=== PATIENT | female | born 1990 | race Caucasian/White ===

== ENCOUNTER 2019-01-26 23:16 | Emergency (ER) | payer OTHER ==
[2019-01-27] MEDS ORDERED: SODIUM CHLORIDE 0.9% 1,000 ML IV STA (00:25)
[2019-01-27] MEDS ORDERED: METOCLOPRAMIDE 5 MG/ML 2 ML VIAL IVP STA (00:25)
[2019-01-27 01:00] VITALS: PULSE 69
[2019-01-27 01:04] LABS: Basophils # (A) 0.1 k/uL (0-0.2); Basophils % (A) 1 %; Eosinophils # (A) 0.1 k/uL (0-0.7); Eosinophils % (A) 1 %; HCT 43.2 % (34.0-46.0); HGB 14.1 gm/dL (11.4-16.0); Lymphocytes % (A) 11 %; MCH 29.4 pg (25.0-35.0); MCHC 32.7 g/dL (31.0-37.0); MCV 89.8 fL (80.0-100.0); Mean Platelet Volume 7.4; Monocytes # (A) 0.3 k/uL (0-1.0); Monocytes % (A) 4 %; Neutrophils # (A) 7.1 k/uL (1.3-7.7); Neutrophils % (A) 83 %; Platelet Count 282 k/uL (150-450); RBC 4.81 m/uL (3.80-5.40); RDW 14.1 % (11.5-15.5); WBC 8.5 k/uL (3.8-10.6)
[2019-01-27 01:07] LABS: Appearance,Urine Cloudy (Clear); Bilirubin,Urine Negative (Negative); Blood,Urine Negative (Negative); Color,Urine Yellow; Glucose,Urine (UA) Negative (Negative); Ketones,Urine 3+ (Negative); Leukocyte Esterase,Urine Moderate (Negative); Mucus,Urine Many /hpf; Nitrite,Urine Negative (Negative); Protein,Urine 1+ (Negative); RBC,Urine 2 /hpf (0-5); Specific Gravity,Urine 1.032 (1.001-1.035); Squamous Epithelial Cell,Urine 28 /hpf (0-4)
[2019-01-27 01:13] LABS: ALT 27 U/L (9-52); AST 22 U/L (14-36); African American GFR (CKD) >90 (>60 ml/min/1.73 sqM); Alkaline Phosphatase 68 U/L (38-126); Amylase 88 U/L (30-110); Anion Gap 12 mmol/L; Blood Urea Nitrogen 13 mg/dL (7-17); Calcium 9.9 mg/dL (8.4-10.2); Carbon Dioxide 24 mmol/L (22-30); Chloride 105 mmol/L (98-107); Glucose 94 mg/dL (74-99); Non-African American GFR(CKD) >90 (>60 ml/min/1.73 sqM); Potassium 3.6 mmol/L (3.5-5.1); Sodium 141 mmol/L (137-145); Total Bilirubin 0.5 mg/dL (0.2-1.3); Total Protein 8.1 g/dL (6.3-8.2)
--- NOTE | 2019-01-27 01:46 | ED ---
Nausea/Vomiting/Diarrhea HPI - General Chief complaint: Nausea/Vomiting/Diarrhea Stated complaint: Vomiting Time Seen by Provider: 01/26/19 23:34 Source: patient Mode of arrival: ambulatory Limitations: no limitations - History of Present Illness Initial comments: This patient is 28-year-old woman who presents to be evaluated for nausea vomiting and abdominal pain. The patient states that for going back as long as she can remember she has always had a sensitive stomach. She states that she tends to get periods in which she has multiple episodes of vomiting and not being able tolerate oral intake. She has noted that this tends to happen after she drinks any alcohol, and states that she did have a couple of alcoholic beverages on Friday when there was a festival. The patient states that over the next few days she has not been able to tolerate much oral intake. She states that when she tries to eat or drink anything she'll have some vomiting after that. She also has had a little bit of epigastric cramping/burning pain that is intermittent and mild to moderate severity. She states that this is something she has also had an the past, having these episodes. The patient states she has had between 10-20 episodes of vomiting/dry heaving today, generally after she has anything to eat or drink. She states that she may have seen this to trace of blood but there is no real coffee ground emesis or bloody vomitus. Patient states that she presents for evaluation because she believes she started to get dehydrated now. complaint: nausea, vomiting Onset/Timin -: days(s) Description of Vomiting: food contents Associated Abdominal Pain: Yes Location: epigastric Radiation: none Severity: mild Quality: cramping Consistency: intermittent Improves with: none Worsens with: eating Associated Symptoms: denies other symptoms - Related Data Home Medications Medication Instructions Recorded Confirmed Ascorbic Acid [Vitamin C] 500 mg PO DAILY 02/27/16 02/27/16 Baclofen [Lioresal] 10 mg PO BID 02/27/16 02/27/16 Cyanocobalamin [Vitamin B-12] 500 mcg PO DAILY 02/27/16 02/27/16 DULoxetine HCL [Cymbalta] 20 mg PO HS 02/27/16 02/27/16 Gabapentin [Neurontin] 100 mg PO HS 02/27/16 02/27/16 Gabapentin [Neurontin] 300 mg PO HS 02/27/16 02/27/16 Hair Skin And Nails 1 tab PO DAILY 02/27/16 02/27/16 lamoTRIgine [LaMICtal] 25 mg PO DAILY 02/27/16 02/27/16 lamoTRIgine [LaMICtal] 100 mg PO HS 02/27/16 02/27/16 Previous Rx's Medication Instructions Recorded Naproxen [Naprosyn] 500 mg PO Q12HR PRN #20 tab 02/27/16 Metoclopramide [Reglan] 10 mg PO Q6HR PRN #10 tab 01/27/19 Allergies Allergy/AdvReac Type Severity Reaction Status Date / Time No Known Allergies Allergy Verified 01/26/19 23:32 Review of Systems ROS Statement: Those systems with pertinent positive or pertinent negative responses have been documented in the HPI. ROS Other: All systems not noted in ROS Statement are negative. Constitutional: Denies: fever, chills, weakness Respiratory: Denies: cough Cardiovascular: Denies: chest pain, palpitations, syncope Gastrointestinal: Reports: abdominal pain, nausea, vomiting. Denies: hematemesis, melena, hematochezia Genitourinary: Denies: dysuria, hematuria Musculoskeletal: Denies: back pain Neurological: Denies: headache, weakness Past Medical History Additional Past Medical History / Comment(s): skin infection History of Any Multi-Drug Resistant Organisms: None Reported Past Surgical History: Tubal Ligation Past Psychological History: Anxiety, Depression Smoking Status: Current every day smoker Past Alcohol Use History: Rare Past Drug Use History: Marijuana General Exam Limitations: no limitations General appearance: alert, in no apparent distress Head exam: Present: atraumatic, normocephalic Eye exam: Present: normal appearance. Absent: scleral icterus, conjunctival injection ENT exam: Present: mucous membranes dry Respiratory exam: Present: normal lung sounds bilaterally. Absent: respiratory distress, wheezes, rales, rhonchi, stridor Cardiovascular Exam: Present: regular rate, normal rhythm, normal heart sounds. Absent: systolic murmur, diastolic murmur, rubs, gallop GI/Abdominal exam: Present: soft, hypoactive bowel sounds. Absent: distended, tenderness, guarding, rebound, rigid, pulsatile mass, hernia Extremities exam: Present: normal inspection, normal capillary refill. Absent: pedal edema, calf tenderness Back exam: Present: normal inspection. Absent: CVA tenderness (R), CVA tenderness (L) Skin exam: Present: warm, dry, intact, normal color. Absent: rash Course Vital Signs 01/26/19 01/27/19 01/27/19 23:28 00:59 02:04 Temperature 98.2 F 98.4 F Pulse Rate 78 69 69 Respiratory 16 18 19 Rate Blood Pressure 135/86 123/75 116/70 O2 Sat by Pulse 97 95 100 Oximetry Medical Decision Making - Medical Decision Making Patient is feeling much better following fluids and Reglan. She states she is feeling somewhat better that she wants to go home. She did tolerate some oral fluids. Discussed following up with PMD/gastroenterology to see about further treatment for what sounds like recurring intermittent episodes of vomiting. Also discussed return parameters. - Lab Data Result diagrams: 01/27/19 00:40 01/27/19 00:40 Lab Results 01/27/19 01/27/19 01/27/19 Range/Units 00:40 00:40 00:40 WBC 8.5 (3.8-10.6) k/uL RBC 4.81 (3.80-5.40) m/uL Hgb 14.1 (11.4-16.0) gm/dL Hct 43.2 (34.0-46.0) % MCV 89.8 (80.0-100.0) fL MCH 29.4 (25.0-35.0) pg MCHC 32.7 (31.0-37.0) g/dL RDW 14.1 (11.5-15.5) % Plt Count 282 (150-450) k/uL Neutrophils % 83 % Lymphocytes % 11 % Monocytes % 4 % Eosinophils % 1 % Basophils % 1 % Neutrophils # 7.1 (1.3-7.7) k/uL Lymphocytes # 1.0 (1.0-4.8) k/uL Monocytes # 0.3 (0-1.0) k/uL Eosinophils # 0.1 (0-0.7) k/uL Basophils # 0.1 (0-0.2) k/uL Sodium 141 (137-145) mmol/L Potassium 3.6 (3.5-5.1) mmol/L Chloride 105 (98-107) mmol/L Carbon Dioxide 24 (22-30) mmol/L Anion Gap 12 mmol/L BUN 13 (7-17) mg/dL Creatinine 0.62 (0.52-1.04) mg/dL Est GFR (CKD-EPI)AfAm >90 (>60 ml/min/1.73 sqM) Est GFR (CKD-EPI)NonAf >90 (>60 ml/min/1.73 sqM) Glucose 94 (74-99) mg/dL Calcium 9.9 (8.4-10.2) mg/dL Total Bilirubin 0.5 (0.2-1.3) mg/dL AST 22 (14-36) U/L ALT 27 (9-52) U/L Alkaline Phosphatase 68 (38-126) U/L Total Protein 8.1 (6.3-8.2) g/dL Albumin 5.0 (3.5-5.0) g/dL Amylase 88 (30-110) U/L Lipase 70 (23-300) U/L Urine Color Urine Appearance (Clear) Urine pH (5.0-8.0) Ur Specific [place] (1.001-1.035) Urine Protein (Negative) Urine Glucose (UA) (Negative) Urine Ketones (Negative) Urine Blood (Negative) Urine Nitrite (Negative) Urine Bilirubin (Negative) Urine Urobilinogen (<2.0) mg/dL Ur Leukocyte Esterase (Negative) Urine RBC (0-5) /hpf Ur Squamous Epith Cells (0-4) /hpf Urine Mucus (None) /hpf Urine HCG, Qual Not Detected (Not Detectd) 01/27/19 Range/Units 00:40 WBC (3.8-10.6) k/uL RBC (3.80-5.40) m/uL Hgb (11.4-16.0) gm/dL Hct (34.0-46.0) % MCV (80.0-100.0) fL MCH (25.0-35.0) pg MCHC (31.0-37.0) g/dL RDW (11.5-15.5) % Plt Count (150-450) k/uL Neutrophils % % Lymphocytes % % Monocytes % % Eosinophils % % Basophils % % Neutrophils # (1.3-7.7) k/uL Lymphocytes # (1.0-4.8) k/uL Monocytes # (0-1.0) k/uL Eosinophils # (0-0.7) k/uL Basophils # (0-0.2) k/uL Sodium (137-145) mmol/L Potassium (3.5-5.1) mmol/L Chloride (98-107) mmol/L Carbon Dioxide (22-30) mmol/L Anion Gap mmol/L BUN (7-17) mg/dL Creatinine (0.52-1.04) mg/dL Est GFR (CKD-EPI)AfAm (>60 ml/min/1.73 sqM) Est GFR (CKD-EPI)NonAf (>60 ml/min/1.73 sqM) Glucose (74-99) mg/dL Calcium (8.4-10.2) mg/dL Total Bilirubin (0.2-1.3) mg/dL AST (14-36) U/L ALT (9-52) U/L Alkaline Phosphatase (38-126) U/L Total Protein (6.3-8.2) g/dL Albumin (3.5-5.0) g/dL Amylase (30-110) U/L Lipase (23-300) U/L Urine Color Yellow Urine Appearance Cloudy H (Clear) Urine pH 6.0 (5.0-8.0) Ur Specific [place] 1.032 (1.001-1.035) Urine Protein 1+ H (Negative) Urine Glucose (UA) Negative (Negative) Urine Ketones 3+ H (Negative) Urine Blood Negative (Negative) Urine Nitrite Negative (Negative) Urine Bilirubin Negative (Negative) Urine Urobilinogen 2.0 (<2.0) mg/dL Ur Leukocyte Esterase Moderate H (Negative) Urine RBC 2 (0-5) /hpf Ur Squamous Epith Cells 28 H (0-4) /hpf Urine Mucus Many H (None) /hpf Urine HCG, Qual (Not Detectd) Disposition Clinical Impression: Vomiting Disposition: HOME SELF-CARE Condition: Good Instructions (If sedation given, give patient instructions): Acute Nausea and Vomiting (ED) Prescriptions: Metoclopramide [Reglan] 10 mg PO Q6HR PRN #10 tab PRN Reason: Vomiting Is patient prescribed a controlled substance at d/c from ED?: No Referrals: Penelope Villalobos DO [Primary Care Provider] - 1-2 days
[2019-01-27 02:07] VITALS: BP 116/70; RESP 19; TEMP 98.4
== END 2019-01-27 02:06 | disposition home or self-care (01) ==
LOC: EC 23:16 → SUPCPDRO 23:16 → EC 01-27 02:06
DX: R11.2 Nausea with vomiting, unspecified (principal); R19.15 Other abnormal bowel sounds; R10.13 Epigastric pain; F32.9 Major depressive disorder, single episode, unspecified; F41.9 Anxiety disorder, unspecified; F17.200 Nicotine dependence, unspecified, uncomplicated; Z79.899 Other long term (current) drug therapy; Z87.2 Personal history of diseases of the skin and subcutaneous tissue
CPT/HCPCS: 36415; 80053; 81001; 81025; 82150; 83690; 85025; 96361; 96374; 99284

== ENCOUNTER 2024-07-21 07:35 | Emergency (ER) | payer OTHER ==
--- NOTE | 2024-07-21 08:12 | ED ---
URI HPI - General Chief Complaint: Upper Respiratory Infection Stated Complaint: Chest pain,Cough Time Seen by Provider: 07/21/24 07:39 Source: patient, RN notes reviewed Mode of arrival: ambulatory Limitations: no limitations - History of Present Illness Initial Comments: Patient is a 34 year old female presenting with cough and congestion x 2 weeks. She states that she has had cough, shortness of breath, congestion, sore throat, vomiting, diarrhea, chills and rib pain for the past 2 weeks. She rates her rib pain a 6-7/10. She notes that the symptoms were present for 1 week, stopped for 3 days, and symptoms came back worse. She notes that the rib pain is on her sides and is worse with coughing, deep breath and vomiting, and is better with putting pressure on her sides. She states the vomiting is typically after she coughs. She states that she has been coughing up "green and yellow". She states taking Nyquil, tylenol and ibuprofen, with no improvement in symptoms. She states that her and child were sick, and she thinks she "has a combination of what they had". She denies any hematemesis, hematochezia/melena, or chest pain. - Related Data Home Medications Medication Instructions Recorded Confirmed Ascorbic Acid [Vitamin C] 500 mg PO DAILY 02/27/16 02/27/16 Baclofen [Lioresal] 10 mg PO BID 02/27/16 02/27/16 Cyanocobalamin [Vitamin B-12] 500 mcg PO DAILY 02/27/16 02/27/16 DULoxetine HCL [Cymbalta] 20 mg PO HS 02/27/16 02/27/16 Gabapentin [Neurontin] 100 mg PO HS 02/27/16 02/27/16 Gabapentin [Neurontin] 300 mg PO HS 02/27/16 02/27/16 Hair Skin And Nails 1 tab PO DAILY 02/27/16 02/27/16 lamoTRIgine [LaMICtal] 25 mg PO DAILY 02/27/16 02/27/16 lamoTRIgine [LaMICtal] 100 mg PO HS 02/27/16 02/27/16 Previous Rx's Medication Instructions Recorded Naproxen [Naprosyn] 500 mg PO Q12HR PRN #20 tab 02/27/16 Metoclopramide [Reglan] 10 mg PO Q6HR PRN #10 tab 01/27/19 Ibuprofen [Motrin] 600 mg PO Q8HR PRN #20 tab 07/21/24 Allergies Allergy/AdvReac Type Severity Reaction Status Date / Time No Known Allergies Allergy Verified 01/26/19 23:32 Review of Systems ROS Statement: Those systems with pertinent positive or pertinent negative responses have been documented in the HPI. ROS Other: All systems not noted in ROS Statement are negative. Past Medical History Past Medical History: Asthma Additional Past Medical History / Comment(s): skin infection chronic back pain. endometrosis History of Any Multi-Drug Resistant Organisms: None Reported Past Surgical History: Tubal Ligation, Uterine Ablation Past Psychological History: Anxiety, Depression Past Alcohol Use History: Rare Past Drug Use History: Marijuana General Exam Limitations: no limitations General appearance: alert, in no apparent distress Head exam: Present: atraumatic, normocephalic, normal inspection Neck exam: Present: normal inspection. Absent: tenderness, meningismus, lymphadenopathy Respiratory exam: Present: rales (bilateral) Cardiovascular Exam: Present: regular rate, normal rhythm, normal heart sounds. Absent: systolic murmur, diastolic murmur, rubs, gallop, clicks GI/Abdominal exam: Present: soft, normal bowel sounds. Absent: distended, tenderness, guarding, rebound, rigid Neurological exam: Present: alert, oriented X3, CN II-XII intact Skin exam: Present: warm, dry, intact, normal color. Absent: rash Course Vital Signs 07/21/24 07/21/24 07:42 09:21 Temperature 98.3 F 98.1 F Pulse Rate 96 78 Respiratory 20 18 Rate Blood Pressure 152/100 145/89 O2 Sat by Pulse 98 97 Oximetry Medical Decision Making - Medical Decision Making Was pt. sent in by a medical professional or institution (, PA, MANAGER ELECTRONIC, urgent care, hospital, or [facility]...) When possible be specific @ -No Did you speak to anyone other than the patient for history (EMS, parent, family, police, friend...)? What history was obtained from this source @ -No Did you review nursing and triage notes (agree or disagree)? Why? @ -I reviewed and agree with nursing and triage notes Were old charts reviewed (outside hosp., previous admission, EMS record, old EKG, old radiological studies, urgent care reports/EKG's, [facility] records)? Report findings @ -No old charts were reviewed Differential Diagnosis (chest pain, altered mental status, abdominal pain women, abdominal pain men, vaginal bleeding, weakness, fever, dyspnea, syncope, headache, dizziness, GI bleed, back pain, seizure, CVA, palpatations, mental health, musculoskeletal)? @ -COVID 19, RSV, influenza, pneumonia, acute bronchitis, URI, this list is not all inclusive EKG interpreted by me (3pts min.). @ -None X-rays interpreted by me (1pt min.). @ -None done CT interpreted by me (1pt min.). @ -None done U/S interpreted by me (1pt. min.). @ -None done What testing was considered but not performed or refused? (CT, X-rays, U/S, labs)? Why? @ -None What meds were considered but not given or refused? Why? @ -None Did you discuss the management of the patient with other professionals (professionals i.e. , PA, MANAGER [employer], lab, RT, psych nurse, social work professor, solar applications development engineer, teacher, security control room officer, outsole caser)? Give summary @ -No Was smoking cessation discussed for >3mins.? @ -No Was critical care preformed (if so, how long)? @ -No Were there social determinants of health that impacted care today? How? (Homelessness, low income, unemployed, alcoholism, drug addiction, transportation, low edu. Level, literacy, decrease access to med. care, long-term, rehab)? @ -No Was there de-escalation of care discussed even if they declined (Discuss DNR or withdrawal of care, Hospice)? DNR status @ -No What co-morbidities impacted this encounter? (DM, HTN, Smoking, COPD, CAD, Cancer, CVA, ARF, Chemo, Hep., AIDS, mental health diagnosis, sleep apnea, morbid obesity)? @ -None Was patient admitted / discharged? Hospital course, mention meds given and route, prescriptions, significant lab abnormalities, going to OR and other pertinent info. @ -[Patient is influenza A positive patient discharged in stable condition with supportive treatment return parens discussed. Undiagnosed new problem with uncertain prognosis? @ -No Drug Therapy requiring intensive monitoring for toxicity (Heparin, Nitro, Insulin, Cardizem)? @ -No Were any procedures done? @ -No Diagnosis/symptom? @ -Influenza A Acute, or Chronic, or Acute on Chronic? @ -Acute Uncomplicated (without systemic symptoms) or Complicated (systemic symptoms)? @ -Uncomplicated Side effects of treatment? @ -No Exacerbation, Progression, or Severe Exacerbation? @ -No Poses a threat to life or bodily function? How? (Chest pain, [place], [place], pneumonia, PE, COPD, DKA, ARF, appy, cholecystitis, CVA, Diverticulitis, Homicidal, Suicidal, threat to staff... and all critical care pts) @ -No - Lab Data Lab Results 07/21/24 Range/Units 08:14 Influenza Type A (PCR) Detected A (Not Detectd) Influenza Type B (PCR) Not Detected (Not Detectd) RSV (PCR) Not Detected (Not Detectd) SARS-CoV-2 (PCR) Not Detected (Not Detectd) Disposition Clinical Impression: Influenza Disposition: HOME SELF-CARE Condition: Stable Instructions (If sedation given, give patient instructions): Influenza (ED) Additional Instructions: Please return to the Emergency Department if symptoms worsen or any other concerns. Prescriptions: Ibuprofen [Motrin] 600 mg PO Q8HR PRN #20 tab PRN Reason: Pain Is patient prescribed a controlled substance at d/c from ED?: No Referrals: None,Stated [Primary Care Provider] - 1-2 days Time of Disposition: 09:03
--- NOTE | 2024-07-21 08:41 | XR ---
EXAMINATION TYPE: XR chest 2V DATE OF EXAM: 07/21/2024 8:36 AM COMPARISON: None CLINICAL INDICATION: Female, 34 years old with history of cough; TECHNIQUE: XR chest 2V Frontal and lateral views of the chest. FINDINGS: Lungs/Pleura: There is no evidence of pleural effusion, focal consolidation, or pneumothorax. Pulmonary vascularity: Unremarkable. Heart/mediastinum: Cardiomediastinal silhouette is unremarkable. Musculoskeletal: No acute osseous pathology. Other findings: None IMPRESSION: No acute cardiopulmonary disease/process. [facility], , 07/21/2024 8:39 AM
[2024-07-21 08:58] LABS: Influenza A Detected (Not Detectd); Influenza B Not Detected (Not Detectd); RSV Not Detected (Not Detectd)
[2024-07-21] MEDS: KETOROLAC 15 MG/ML 1 ML VIAL IM STA (09:15)
[2024-07-21 09:22] VITALS: BP 145/89; PULSE 78; RESP 18; TEMP 98.1
== END 2024-07-21 09:22 | disposition home or self-care (01) ==
LOC: EC 07:35
DX: J10.1 Influenza due to other identified influenza virus with other respiratory manifestations (principal)
CPT/HCPCS: 87636; 71046; 99285; 96372; J1885

== ENCOUNTER 2024-07-27 12:18 | Inpatient (IN) | payer OTHER ==
[2024-07-27] MEDS: SODIUM CHLORIDE 0.9% 2,000 ML IV STA (13:27)
[2024-07-27] MEDS: KETOROLAC 15 MG/ML 1 ML VIAL IVP STA (13:27)
[2024-07-27] MEDS: PANTOPRAZOLE 40 MG/10 ML VIAL IVP STA (13:27)
[2024-07-27] MEDS: ONDANSETRON 4 MG/2 ML VIAL IVP STA (13:27)
[2024-07-27 13:52] LABS: Basophils % (A) 0 %; Eosinophils # (A) 0.1 k/uL (0-0.7); Eosinophils % (A) 0 %; HCT 43.6 % (34.0-46.0); HGB 14.7 gm/dL (11.4-16.0); Lymphocytes # (A) 0.6 k/uL (1.0-4.8); Lymphocytes % (A) 2 %; MCH 28.8 pg (25.0-35.0); MCHC 33.8 g/dL (31.0-37.0); MCV 85.3 fL (80.0-100.0); Mean Platelet Volume 8.3; Monocytes % (A) 4 %; Neutrophils % (A) 92 %; Platelet Count 251 k/uL (150-450); RBC 5.11 m/uL (3.80-5.40); RDW 12.6 % (11.5-15.5)
[2024-07-27 14:04] LABS: ALT 70 U/L (4-34); AST 35 U/L (14-36); African American GFR (CKD) >90 (>60 ml/min/1.73 sqM); Albumin 4.8 g/dL (3.5-5.0); Alkaline Phosphatase 140 U/L (38-126); Amylase 54 U/L (30-110); Anion Gap 18 mmol/L; Blood Urea Nitrogen 20 mg/dL (7-17); Calcium 9.4 mg/dL (8.4-10.2); Carbon Dioxide 24 mmol/L (22-30); Chloride 93 mmol/L (98-107); Glucose 103 mg/dL (74-99); Lipase 45 U/L (23-300); Non-African American GFR(CKD) 84 (>60 ml/min/1.73 sqM); Potassium 3.5 mmol/L (3.5-5.1); Sodium 135 mmol/L (137-145); Total Bilirubin 1.7 mg/dL (0.2-1.3); Total Protein 8.1 g/dL (6.3-8.2)
[2024-07-27 14:06] LABS: INR 1.5 (<1.2); Partial Thromboplastin Time 27.3 sec (22.0-30.0); Prothrombin Time 15.8 sec (10.0-12.5)
[2024-07-27 14:20] LABS: HCG,Qualitative Serum Not Detected
[2024-07-27 14:28] LABS: Influenza A Not Detected (Not Detectd); Influenza B Not Detected (Not Detectd); RSV Not Detected (Not Detectd)
--- NOTE | 2024-07-27 14:48 | ED ---
General Adult HPI <Clifford Mehta - Last Filed: 07/27/24 17:07> - General Source: patient, RN notes reviewed, old records reviewed Mode of arrival: ambulatory Limitations: no limitations <Chucky Villalobos - Last Filed: 07/28/24 12:59> - General Chief complaint: Recheck/Abnormal Lab/Rx Stated complaint: Vomiting,Back pain Time Seen by Provider: 07/27/24 12:50 - History of Present Illness Initial comments: Patient is a 34-year-old female who presents emergency department complaining of abdominal pain, nausea, vomiting as well as a cough. Has been ongoing for more or less a month. This is triggering trauma chronic back spasms as well. Uncertain what is causing current symptoms. Was diagnosed with the flu a few weeks ago but states she never seem to be feel better. She endorses epigastric abdominal discomfort. She denies chest pain or shortness of breath. Denies urinary complaints. States she is not . Presents for further evaluation at this time. (Chucky Villalobos) - Related Data Previous Rx's Medication Instructions Recorded Ibuprofen [Motrin] 600 mg PO Q8HR PRN #20 tab 07/21/24 Allergies Allergy/AdvReac Type Severity Reaction Status Date / Time No Known Allergies Allergy Verified 07/27/24 17:45 Review of Systems ROS Other: All systems not noted in ROS Statement are negative. <Clifford Mehta - Last Filed: 07/27/24 17:07> ROS Other: All systems not noted in ROS Statement are negative. <Chucky Villalobos - Last Filed: 07/28/24 12:59> ROS Statement: Those systems with pertinent positive or pertinent negative responses have been documented in the HPI. Review of Systems: CONST: Denies fever EYES: Denies blurry vision ENT: Denies nasal congestion C/V: Denies Chest pain RESP: Denies shortness of breath GI: Endorses abdominal pain : Denies dysuria SKIN: Denies rash. MSK: Denies joint pain. NEURO: Denies headache (Chucky Villalobos) Past Medical History Past Medical History: Asthma Additional Past Medical History / Comment(s): skin infection chronic back pain. endometrosis History of Any Multi-Drug Resistant Organisms: None Reported Past Surgical History: Tubal Ligation, Uterine Ablation Past Psychological History: Anxiety, Depression Smoking Status: Vaper Past Alcohol Use History: Rare Past Drug Use History: Marijuana <Chucky Villalobos - Last Filed: 07/28/24 12:59> General Exam Limitations: no limitations <Chucky Villalobos - Last Filed: 07/28/24 12:59> - General Exam Comments Initial Comments: General: Appears in mild to moderate distress secondary to abdominal pain. HEAD: Normal with no signs of head trauma. EYES: PERRLA, EOMI, conjunctiva normal, no discharge. ENT: Hearing grossly intact, normal oropharynx. RESPIRATORY: Clear breath sounds bilaterally. No wheezes, rales, or rhonchi. C/V: Regular rate and rhythm. S1 and S2 auscultated, no edema, peripheral pulses 2+ and intact throughout ABD: Abdomen soft, nondistended. Tender palpation epigastric region and upper quadrants generally. No guarding. No rebound tenderness. EXT: Normal range of motion, no obvious deformity. Patient does have some mid line and paraspinal muscle tenderness palpation of the lower thoracic and lumbar spine. SKIN: No rashes or lesions observed on exposed skin. NEURO: Alert and oriented x 4. (Chucky Villalobos) Course Vital Signs 07/27/24 07/27/24 07/27/24 12:28 16:31 18:13 Temperature 98 F 97.7 F 98 F Pulse Rate 116 H 88 82 Respiratory 18 18 18 Rate Blood Pressure 119/79 129/82 133/83 O2 Sat by Pulse 98 98 98 Oximetry Medical Decision Making - Lab Data Result diagrams: 07/27/24 13:43 07/27/24 13:43 <Clifford Mehta - Last Filed: 07/27/24 17:07> - Lab Data Result diagrams: 07/27/24 13:43 07/27/24 13:43 - EKG Data -: EKG Interpreted by Me <Chucky Villalobos - Last Filed: 07/28/24 12:59> - Medical Decision Making Patient care signed out to me by Dr. Villalobos. Briefly, patient 34-year-old female presents to the emergency department nausea vomiting cough and generalized pain. She has been having ongoing symptoms that have steadily been worsening. Vital signs shows tachycardia. Laboratory evaluation obtained showing leukocytosis of 24.0. Rest of labs within acceptable limits. Viral testing negative. Images reviewed. CT of the abdomen pelvis shows bilateral lung infiltrates concerning for pneumonia. Patient started on Zosyn. Plan at signout was to follow-up with pending ultrasound and to plan disposition. Pending labs and imaging were resulted. Gallbladder ultrasound shows no acute processes. Patient seen and evaluated the bedside still significantly symptomatic. Patient will be admitted for failed outpatient treatment pneumonia along with intractable nausea, vomiting and abdominal pain. Case discussed with hospitalist for admission. Diagnosis/symptom? @ -Pneumonia, intractable nausea, vomiting and abdominal pain Acute, or Chronic, or Acute on Chronic? @ -Default Uncomplicated (without systemic symptoms) or Complicated (systemic symptoms)? @ -Default Side effects of treatment? @ -None Exacerbation, Progression, or Severe Exacerbation] @ -No Poses a threat to life or bodily function? @ -Yes (Clifford Mehta) Was pt. sent in by a medical professional or institution (, PA, COIL ASSEMBLER, urgent care, hospital, or custodial...) When possible be specific @ -No Did you speak to anyone other than the patient for history (EMS, parent, family, police, friend...)? What history was obtained from this source @ -No Did you review nursing and triage notes (agree or disagree)? Why? @ -I reviewed and agree with nursing and triage notes Were old charts reviewed (outside hosp., previous admission, EMS record, old EKG, old radiological studies, urgent care reports/EKG's, custodial records)? Report findings @ -No old charts were reviewed Differential Diagnosis (chest pain, altered mental status, abdominal pain women, abdominal pain men, vaginal bleeding, weakness, fever, dyspnea, syncope, headache, dizziness, GI bleed, back pain, seizure, CVA, palpatations, mental health, musculoskeletal)? @ -Differential Abdominal Pain Women: Appendicitis, Cholecystitis, diverticulosis, ischemic bowel, pancreatitis, hepatitis, UTI, gastroenteritis, AAA, incarcerated hernia, bowel obstruction, co nstipation, inflammatory bowel, hepatitis, peptic ulcer disease, splenic infarction, perforated viscus, vulvitis, ovarian torsion, PID, kidney stone, placenta abruption, this is not meant to be an all-inclusive list EKG interpreted by me (3pts min.). @ -As above X-rays interpreted by me (1pt min.). @ -Pending CT interpreted by me (1pt min.). @ -Pending U/S interpreted by me (1pt. min.). @ -Pending What testing was considered but not performed or refused? (CT, X-rays, U/S, labs)? Why? @ -None What meds were considered but not given or refused? Why? @ -None Did you discuss the management of the patient with other professionals (professionals i.e. , PA, COIL ASSEMBLER, lab, RT, psych nurse, social media marketing analyst, instrument maker and repairer, teacher, youth liaison officer, case loader operator)? Give summary @ -No Was smoking cessation discussed for >3mins.? @ -No Was critical care preformed (if so, how long)? @ -No Were there social determinants of health that impacted care today? How? (Homelessness, low income, unemployed, alcoholism, drug addiction, transportation, low edu. Level, literacy, decrease access to med. care, [facility], rehab)? @ -No Was there de-escalation of care discussed even if they declined (Discuss DNR or withdrawal of care, Hospice)? DNR status @ -No What co-morbidities impacted this encounter? (DM, HTN, Smoking, COPD, CAD, Cancer, CVA, ARF, Chemo, Hep., AIDS, mental health diagnosis, sleep apnea, morbid obesity)? @ -None Was patient admitted / discharged? Hospital course, mention meds given and route , prescriptions, significant lab abnormalities, going to OR and other pertinent info. @ -Patient presents with abdominal pain, continued cough and congestion in the setting of flu diagnosis a few weeks ago. Symptoms have been ongoing for a month. Worsening abdominal pain with some back pain now. Vitals are within acceptable limits. Patient will be symptomatically treated with IV fluids, Protonix, analgesia medications, Zofran. Patient was in agreement this plan. EKG shows no signs of acute ischemia. Laboratory studies remarkable for leukocytosis of 24 which could be reactive however this is relatively high. Patient is not . Viral swabs negative. Slightly elevated ALT and alk phos. Imaging is pending at this time. This includes chest x-ray, CT on pelvis as well as gallbladder ultrasound. Patient empirically given a dose of Zosyn due to the elevated white count. I did discuss with the patient and she was in agreement plan for imaging. I spoke with the incoming emergency department provider, Dr. Mehta who will inherit care of the patient pending results of imaging. Undiagnosed new problem with uncertain prognosis? @ -No Drug Therapy requiring intensive monitoring for toxicity (Heparin, Nitro, Insulin, Cardizem)? @ -No Were any procedures done? @ -No (Chucky Villalobos) - Lab Data Lab Results 07/27/24 07/27/24 07/27/24 Range/Units 13:43 13:43 13:43 WBC 24.0 H (3.8-10.6) k/uL RBC 5.11 (3.80-5.40) m/uL Hgb 14.7 (11.4-16.0) gm/dL Hct 43.6 (34.0-46.0) % MCV 85.3 (80.0-100.0) fL MCH 28.8 (25.0-35.0) pg MCHC 33.8 (31.0-37.0) g/dL RDW 12.6 (11.5-15.5) % Plt Count 251 (150-450) k/uL MPV 8.3 Neutrophils % 92 % Lymphocytes % 2 % Monocytes % 4 % Eosinophils % 0 % Basophils % 0 % Neutrophils # 22.0 H (1.3-7.7) k/uL Lymphocytes # 0.6 L (1.0-4.8) k/uL Monocytes # 1.0 (0-1.0) k/uL Eosinophils # 0.1 (0-0.7) k/uL Basophils # 0.0 (0-0.2) k/uL PT 15.8 H (10.0-12.5) sec INR 1.5 H (<1.2) APTT 27.3 (22.0-30.0) sec Sodium 135 L (137-145) mmol/L Potassium 3.5 (3.5-5.1) mmol/L Chloride 93 L (98-107) mmol/L Carbon Dioxide 24 (22-30) mmol/L Anion Gap 18 mmol/L BUN 20 H (7-17) mg/dL Creatinine 0.90 (0.52-1.04) mg/dL Est GFR (CKD-EPI)AfAm >90 (>60 ml/min/1.73 sqM) Est GFR (CKD-EPI)NonAf 84 (>60 ml/min/1.73 sqM) Glucose 103 H (74-99) mg/dL Plasma Lactic Acid [place] (0.7-2.0) mmol/L Calcium 9.4 (8.4-10.2) mg/dL Total Bilirubin 1.7 H (0.2-1.3) mg/dL AST 35 (14-36) U/L ALT 70 H (4-34) U/L Alkaline Phosphatase 140 H (38-126) U/L Total Protein 8.1 (6.3-8.2) g/dL Albumin 4.8 (3.5-5.0) g/dL Amylase 54 (30-110) U/L Lipase 45 (23-300) U/L HCG, Qual Not Detected Influenza Type A (PCR) (Not Detectd) Influenza Type B (PCR) (Not Detectd) RSV (PCR) (Not Detectd) SARS-CoV-2 (PCR) (Not Detectd) Group A Strep (PCR) (Not Detectd) 07/27/24 07/27/24 07/27/24 Range/Units 13:43 13:43 13:43 WBC (3.8-10.6) k/uL RBC (3.80-5.40) m/uL Hgb (11.4-16.0) gm/dL Hct (34.0-46.0) % MCV (80.0-100.0) fL MCH (25.0-35.0) pg MCHC (31.0-37.0) g/dL RDW (11.5-15.5) % Plt Count (150-450) k/uL MPV Neutrophils % % Lymphocytes % % Monocytes % % Eosinophils % % Basophils % % Neutrophils # (1.3-7.7) k/uL Lymphocytes # (1.0-4.8) k/uL Monocytes # (0-1.0) k/uL Eosinophils # (0-0.7) k/uL Basophils # (0-0.2) k/uL PT (10.0-12.5) sec INR (<1.2) APTT (22.0-30.0) sec Sodium (137-145) mmol/L Potassium (3.5-5.1) mmol/L Chloride (98-107) mmol/L Carbon Dioxide (22-30) mmol/L Anion Gap mmol/L BUN (7-17) mg/dL Creatinine (0.52-1.04) mg/dL Est GFR (CKD-EPI)AfAm (>60 ml/min/1.73 sqM) Est GFR (CKD-EPI)NonAf (>60 ml/min/1.73 sqM) Glucose (74-99) mg/dL Plasma Lactic Acid [place] 1.5 (0.7-2.0) mmol/L Calcium (8.4-10.2) mg/dL Total Bilirubin (0.2-1.3) mg/dL AST (14-36) U/L ALT (4-34) U/L Alkaline Phosphatase (38-126) U/L Total Protein (6.3-8.2) g/dL Albumin (3.5-5.0) g/dL Amylase (30-110) U/L Lipase (23-300) U/L HCG, Qual Influenza Type A (PCR) Not Detected (Not Detectd) Influenza Type B (PCR) Not Detected (Not Detectd) RSV (PCR) Not Detected (Not Detectd) SARS-CoV-2 (PCR) Not Detected (Not Detectd) Group A Strep (PCR) NOT DETECTED (Not Detectd) - EKG Data EKG Comments: 12-lead Electrocardiogram Interpretation Note EKG was reviewed and interpreted by myself. 12-lead ECG performed at 1315 is interpreted by me as revealing normal sinus rhythm at a rate of 99 beats per minute. [place] is normal. ID interval is 151 ms, QRS duration is 93 ms, QTc is 49 ms.. There were no ST or T wave abnormalities to suggest myocardial ischemia or injury. R wave progression across the precordium was satisfactory. By my interpretation this EKG is non-diagnostic for acute ischemia. (Chucky Villalobos) Disposition Decision Time: 17:08 <Clifford Mehta - Last Filed: 07/27/24 17:07> <Chucky Villalobos - Last Filed: 07/28/24 12:59> Clinical Impression: Pneumonia Disposition: ADMITTED IP TO THIS HOSP Condition: Fair
--- NOTE | 2024-07-27 15:06 | XR ---
EXAMINATION TYPE: XR chest 2V DATE OF EXAM: 07/27/2024 3:03 PM COMPARISON: None TECHNIQUE: XR chest 2V Frontal and lateral views of the chest. CLINICAL INDICATION:Female, 34 years old with history of abdominal pain; FINDINGS: Lungs/Pleura: There is no evidence of pleural effusion, focal consolidation, or pneumothorax. Pulmonary vascularity: Unremarkable. Heart/mediastinum: Cardiomediastinal silhouette is unremarkable. Musculoskeletal: No acute osseous pathology. IMPRESSION: No acute cardiopulmonary disease/process. [facility], , 07/27/2024 3:04 PM
[2024-07-27] MEDS: PIPERACILLIN-TAZOBACTAM 3.375 GM in SODIUM CHLORIDE 0.9% 100 ML IVPB ONE (15:19)
--- NOTE | 2024-07-27 15:21 | CT ---
EXAMINATION TYPE: CT abdomen pelvis w con DATE OF EXAM: 07/27/2024 COMPARISON: None CLINICAL INDICATION: Female, 34 years old with history of abd pain, n/v; PHH, vomiting/abd pain TECHNIQUE: Performed without Oral Contrast and with IV Contrast, patient injected with 100ml mL of Isovue 300. CT DLP: [address] CTDI: mGy Automated exposure control for dose reduction was used. FINDINGS: There is a moderate ill-defined area of partially consolidated density in the left lower lobe. There are small groundglass opacities in the right lower lobe and left lingula and the findings are consist ent with an acute inflammatory process such as pneumonia. Short-term follow-up to resolution is recom mended. The gallbladder is normal without distention, wall thickening, pericholecystic fluid or gallstones. There is no biliary ductal dilatation. There is no focal mass or organomegaly involving the liver, pancreas, spleen or adrenal glands. There is no solid renal mass or hydronephrosis and there is homogeneous contrast enhancement of the r enal parenchyma. There is a 3 mm nonobstructing left renal calcification. The caliber the abdominal aorta is normal is no retroperitoneal adenopathy or hemorrhage. The bowel loops are normal in caliber and there is no evidence of dilatation or obstruction. No infla mmatory changes are identified in the bowel wall or mesentery. There is no free intraperitoneal air or fluid. No pelvic mass, free fluid, abscess or adenopathy. The osseous structures and soft tissues are intact. IMPRESSION: 1. Bilateral lung infiltrates as described above. Findings most consistent with acute inflammatory pr ocess such as pneumonia and short-term follow-up to resolution is recommended. 2. 3 mm nonobstructing left renal calcification. 3. No acute changes within the abdomen or pelvis. [facility], , 07/27/2024 3:19 PM
--- NOTE | 2024-07-27 16:17 | US ---
EXAMINATION TYPE: US gallbladder DATE OF EXAM: 07/27/2024 COMPARISON: CT abdomen and pelvis 07/27/2024 CLINICAL INDICATION: Female, 34 years old with history of n/v; pain TECHNIQUE: Grayscale and color Doppler imaging of the right upper quadrant was performed. FINDINGS: EXAM MEASUREMENTS: Liver Length: 14.4 cm Gallbladder Wall: .2 cm CBD: .2 cm Right Kidney: 10.9 x 4.4 x 4.8 cm MEDICAL COLLECTIONS NOTES: Pancreas: Tail obscured by overlying bowel gas Liver: wnl Gallbladder: Low level echoes seen. Evidence for sonographic Mcmillan's sign: no CBD: wnl Right Kidney: No hydronephrosis or masses seen The visualized portions of the pancreas unremarkable. The tail is obscured by overlying bowel gas. Th e liver is within normal limits without focal lesion. No shadowing gallbladder calculi. No wall thick ening or surrounding fluid. Low-level echoes demonstrated. Negative sonographic Mcmillan's sign. Common bile duct is within normal limits. No hydronephrosis, shadowing calculi or solid masses involving th e right kidney. IMPRESSION: Gallbladder sludge without evidence for acute cholecystitis. [facility], , 07/27/2024 4:15 PM
[2024-07-27] MEDS ORDERED: NALOXONE 0.4 MG/ML 1 ML VIAL IV PRN (17:03)
[2024-07-27] MEDS: SODIUM CHLORIDE 0.9% 1,000 ML IV SCH (17:48)
[2024-07-27] MEDS: KETOROLAC 15 MG/ML 1 ML VIAL IVP PRN (17:54)
[2024-07-27] MEDS: ONDANSETRON 4 MG/2 ML VIAL IVP PRN (20:42)
[2024-07-27] MEDS: ACETAMINOPHEN TAB 325 MG TAB PO PRN (22:03)
[2024-07-27] MEDS: PIPERACILLIN-TAZOBACTAM 3.375 GM in SODIUM CHLORIDE 0.9% 100 ML IVPB SCH (23:00)
[2024-07-28] MEDS ORDERED: guaiFENesin-DM 600/30MG 1 EACH TAB.ER.12H PO PRN (04:01)
--- NOTE | 2024-07-28 04:06 | P.CNPUL ---
History of Present Illness Consult date: 07/28/24 Requesting physician: Chucky Villalobos Reason for consult: pneumonia Chief complaint: shortness of breath, cough, back pain History of present illness: Patient is a 34-year-old female, she reports history of asthma, states she has an as needed albuterol inhaler which she normally requires only once every 1 to 2 weeks. She does smoke marijuana and vapes daily. Of note, patient initially evaluated in the emergency department on July 21 for flu-like symptoms. Determined to have influenza A infection. Initial symptom onset was 2 weeks prior, and patient did not receive Tamiflu. Patient returns to the emergency department yesterday afternoon complaining of worsening shortness of breath, persistent cough, continued nausea and vomiting, and abdominal pain. Also, reports back "spasms" that she is feel exacerbated by coughing. Initial chest x- ray did not show any focal infiltrates or evidence of pneumonia. Subsequently, underwent CT of the abdomen pelvis with contrast demonstrating a consolidative opacity in the left lower lung along with small groundglass opacities in the rig ht lower lobe and lingula. Also incidental finding of 3 mm nonobstructive left renal calculi. No acute intra-abdominal findings. CBC remarkable for leukocytosis with a WBC count of 24, hemoglobin 14.7, platelets 251. CMP: Sodium 135, potassium 3.5, chloride 93, serum bicarb 24, BUN 20, creatinine 0.9, glucose 103. Lactic is 1.5. LFTs mildly elevated. Total bilirubin 1.7. Lipase 45. [id number] test negative. Negative for influenza, RSV, COVID. Currently being evaluated the general medical floor. She is resting comfortably on room air. Does not appear in acute respiratory distress. Denies any fevers, chills, chest pain, purulent sputum production, hemoptysis. Cough is persistent and congested, but mostly nonproductive. Nontoxic appearance. Normal saline is infusing at 130 mL/h. She has been started on empiric antibiotics in the ED in the form of Zosyn. Has remained afebrile inpatient. Nausea and vomiting is subsided. Abdomen is soft and nontender. She is tolerating oral fluids and crackers. Current most recent vital signs: Temperature 98.1 F, heart rate 70 bpm, blood pressure 104/71 mmHg, SpO2 recorded 96% on room air. Review of Systems Constitutional: Reports fatigue, Reports poor appetite, Reports sweats, Denies chills, Denies fever, Denies weight gain, Denies weight loss Ears, nose, mouth and throat: Reports sore throat, Denies headache, Denies nasal congestion, Denies nasal discharge, Denies sinus pain, Denies sinus pressure Cardiovascular: Denies chest pain, Denies leg edema, Denies lightheadedness, Denies orthopnea, Denies palpitations, Denies paroxysmal nocturnal dyspnea, Denies syncope Respiratory: Reports as per HPI Gastrointestinal: Reports as per HPI, Denies hematemesis Genitourinary: Denies dysuria, Denies flank pain, Denies hematuria Musculoskeletal: Denies limitation of motion Integumentary: Denies rash Neurological: Denies seizures, Denies syncope Psychiatric: Denies anxiety, Denies depression Past Medical History Past Medical History: Asthma Additional Past Medical History / Comment(s): skin infection chronic back pain. endometrosis History of Any Multi-Drug Resistant Organisms: None Reported Past Surgical History: Tubal Ligation, Uterine Ablation Past Psychological History: Anxiety, Depression Smoking Status: Vaper Past Alcohol Use History: Rare Past Drug Use History: Marijuana Medications and Allergies Home Medications Medication Instructions Recorded Confirmed Type Ibuprofen [Motrin] 600 mg PO Q8HR PRN #20 tab 07/21/24 07/27/24 Rx Allergies Allergy/AdvReac Type Severity Reaction Status Date / Time No Known Allergies Allergy Verified 07/27/24 17:45 Physical Exam Vitals: Vital Signs Temp Pulse Pulse Resp BP BP Pulse Ox 07/28/24 02:20 99 20 07/28/24 01:30 98.1 F 70 18 104/71 96 07/27/24 19:31 99.0 F 99 20 115/68 97 07/27/24 18:13 98 F 82 18 133/83 98 07/27/24 16:31 97.7 F 88 18 129/82 98 07/27/24 12:28 98 F 116 H 18 119/79 98 Intake and Output 07/27/24 07/27/24 07/28/24 14:59 22:59 06:59 Other: Voiding Method Toilet # Voids 4 Weight 79.379 kg 79.379 kg GENERAL EXAM: Alert, obese 34-year-old female, nontoxic appearance, comfortable in no apparent distress. HEAD: Normocephalic and atraumatic EYES: Normal reaction of pupils, equal size. NOSE: Clear with pink turbinates. THROAT: No erythema or exudates. NECK: No masses, no JVD. CHEST: No chest wall deformity. LUNGS: Equal air entry with no crackles, wheeze, rhonchi or dullness. On room air. No conversational dyspnea or accessory muscle use.. CVS: S1 and S2 normal with no audible murmur, regular rhythm. No extra heart sounds ABDOMEN: No hepatosplenomegaly, active bowel sounds, no guarding or rigidity. SPINE: No scoliosis or deformity SKIN: No rashes CENTRAL NERVOUS SYSTEM: No focal deficits, tone is normal in all 4 extremities. EXTREMITIES: There is no peripheral edema, clubbing, or cyanosis. Peripheral pulses are intact. Results - Laboratory Findings CBC and BMP: 07/27/24 13:43 07/27/24 13:43 PT/INR, D-dimer PT 15.8 sec (10.0-12.5) H 07/27/24 13:43 INR 1.5 (<1.2) H 07/27/24 13:43 Abnormal lab findings: Abnormal Labs 07/27/24 07/27/24 07/27/24 13:43 13:43 13:43 WBC 24.0 H Neutrophils # 22.0 H Lymphocytes # 0.6 L PT 15.8 H INR 1.5 H Sodium 135 L Chloride 93 L BUN 20 H Glucose 103 H Total Bilirubin 1.7 H ALT 70 H Alkaline Phosphatase 140 H - Diagnostic Findings Chest x-ray: image reviewed Assessment and Plan Assessment: Community-acquired pneumonia, CT of the abdomen pelvis showing a consolidative opacity in left lower lung, as well as, small groundglass opacities in the right lower lobe and lingula. Acute leukocytosis Recent history of influenza A infection, outside the window for Tamiflu Mild intermittent bronchial asthma, stable Nausea and vomiting, improved Nephrolithiasis, 3 mm nonobstructive left renal calculi incidentally noted on abdominal/pelvis CT Nicotine dependence and vaping Chronic marijuana smoker Obesity, BMI 35.3 kg/m Plan: Patient's medications, labs, imaging reviewed On room air oxygen Continue empiric antibiotics Continue IV maintenance fluids Now tolerating oral fluids and minimal solid foods Smoking cessation counseling performed Anticipate 24 to 48-hour hospitalization Will continue to follow time statement I have personally seen and examined the patient, performed the documentation and the assessment and plan as written. Number of minutes spent on the visit:20 This is a joint evaluation that was done along with the nurse practitioner. This evaluation was done and more than 30 minutes. In summary, 34-year-old female patient, post influenza A infection, coming in with a left lower lobe pneumonia. Currently on IV Zosyn. She is also known to have bronchial asthma. She will be placed on steroids. She will placed on DuoNeb nebulizer treatments [id number]. She will be placed on Mucinex. Will obtain a follow-up chest x-ray within the next 4 to 48 hours. Overall condition is stable. Will continue to follow. Time with Patient: Greater than 30
[2024-07-28] MEDS ORDERED: IPRATROPIUM-ALBUTEROL 3 ML NEB INHALATION PRN (04:59)
[2024-07-28] MEDS: IPRATROPIUM-ALBUTEROL 3 ML NEB INHALATION SCH (13:09)
[2024-07-28 13:31] VITALS: BMI 35.3
[2024-07-28] MEDS: methylPREDNISolone SOD SUCCI 40 MG/ML 1 ML VIAL IV SCH (13:39)
--- NOTE | 2024-07-28 16:42 | P.HPIM ---
History of Present Illness H&P Date: 07/28/24 Chief Complaint: Pneumonia Patient is a 34-year-old female with past medical history of asthma presented to the emergency department with abdominal pain, nausea, vomiting, cough for the past month. Patient was diagnosed with flu a few weeks ago but stated that she never got better. For the first 2 weeks over the past month patient started having coughing, runny nose, sore throat. This eventually got better for few days. However, over the past week or so patient started feeling worse again with similar symptoms of runny nose, coughing, sore throat. She denies having any fever or chills. Also reports abdominal pain, nausea, vomiting. Denies chest pain, shortness of breath, or lower extremity swelling. ED documentation reviewed. In the ED patient was treated with 2 L of bolus normal saline, Protonix 40 mg IV x 1, Zofran 4 mg IV x 1, Toradol 50 mg IV x 1 Vitals on admission temperature 98, pulse rate 67, respiratory rate 16, blood pressure 109/76, O2 sat 95% on room air EKG independently interpreted as sinus rhythm with frequent supraventricular premature complexes with ventricular rate of 99 bpm, QTc 409 ms CXR shows no acute cardiopulmonary disease/process Gallbladder ultrasound shows gallbladder sludge without evidence for acute cholecystitis. CT of abdomen pelvis shows bilateral lung infiltrates as described above. Findings most consistent with acute inflammatory process such as pneumonia and short-term follow-up to resolution is recommended. 3 mm nonobstructing left renal calcification. No acute changes within the abdomen or pelvis. Labs on admission show WBC 24, hemoglobin 14.7, hematocrit 43.6, platelets 251, PT 15.8, INR 1.5, PTT 27.3, sodium 135, potassium 3.5, chloride 93, BUN 20, creatinine 0.9, glucose 103, total bili 1.7, AST 35, ALT 70, alkaline phosphatase 140, hCG not detected Review of systems: Pertinent positives and negatives as discussed in HPI, a complete review of systems was performed and all other systems are negative. PMH: Asthma PSH: Tubal ligation, uterine ablation FMH: No pertinent family history Allergies: No known drug allergies Social history: Tobacco: Vaper Alcohol: Rare alcohol use Recreational drugs: Marijuana Physical examination: Vital signs reviewed General: nontoxic, no distress, appears at stated age Derm: warm, dry, intact Head: atraumatic, normocephalic, symmetric Eyes: EOMI, anicteric sclera Mouth: no lip lesion, mucus membranes moist Cardiovascular: S1 S2 reg, no murmur Lungs: Clear to auscultation bilaterally Abdominal: soft, non-tender to palpation Extremities: No cyanosis, clubbing, or pedal edema. Neuro: Alert. Gross neurological examination did not reveal any focal deficits. Psych: well appearing, appropriate affect Assessment/Plan: Patient is a 34-year-old female with past medical history of asthma presented to the emergency department with abdominal pain, nausea, vomiting, cough for the past month. Patient will be admitted to internal medicine service. Active: #. Community-acquired pneumonia #. Leukocytosis Chest x-ray showed no acute cardiopulmonary disease/process CT of abdomen/pelvis shows bilateral lung infiltrates as described above. Findings most consistent with acute inflammatory process such as pneumonia and short-term follow-up to resolution is recommended. WBC 24 Respiratory panel negative for flu, RSV, COVID-19 Group A strep testing negative Continue Zosyn 3.375 g IV every 8 hours Consult pulmonary medicine Morning CBC/CMP Reduce normal saline to 75 cc an hour F: No restrictions E: Replete as needed N: Regular diet A: Ambulatory The patient is admitted with an anticipated less than 2 midnight stay for evaluation of community-acquired pneumonia CODE STATUS: Full code Discussed with: Patient Anticipated discharge place: Home Past Medical History Past Medical History: Asthma Additional Past Medical History / Comment(s): skin infection chronic back pain. endometrosis History of Any Multi-Drug Resistant Organisms: None Reported Past Surgical History: Tubal Ligation, Uterine Ablation Past Psychological History: Anxiety, Depression Smoking Status: Vaper Past Alcohol Use History: Rare Past Drug Use History: Marijuana Medications and Allergies Home Medications Medication Instructions Recorded Confirmed Type Ibuprofen [Motrin] 600 mg PO Q8HR PRN #20 tab 07/21/24 07/27/24 Rx Allergies Allergy/AdvReac Type Severity Reaction Status Date / Time No Known Allergies Allergy Verified 07/27/24 17:45 Physical Exam Vitals: Vital Signs Temp Pulse Pulse Resp BP BP Pulse Ox 07/28/24 07:34 98.0 F 67 16 109/76 95 07/28/24 02:20 99 20 07/28/24 01:30 98.1 F 70 18 104/71 96 07/27/24 19:31 99.0 F 99 20 115/68 97 07/27/24 18:13 98 F 82 18 133/83 98 07/27/24 16:31 97.7 F 88 18 129/82 98 07/27/24 12:28 98 F 116 H 18 119/79 98 Intake and Output 07/27/24 07/28/24 07/28/24 22:59 06:59 14:59 Intake Total 1760 Balance 1760 Intake: Intake, IV Titration 1760 Amount Piperacillin-Tazobactam 3 200 .375 gm In Sodium Chloride 0.9% 100 ml @ 25 mls/hr IVPB Q8H RIGO Rx#: [id number] Sodium Chloride 0.9% 1, 1560 000 ml @ 130 mls/hr IV . Q7H42M RIGO Rx#:[id number] Other: Voiding Method Toilet # Voids 4 Weight 79.379 kg Results CBC & Chem 7: 07/27/24 13:43 07/27/24 13:43 Labs: Abnormal Lab Results - Last 24 Hours (Table) 07/27/24 07/27/24 07/27/24 Range/Units 13:43 13:43 13:43 WBC 24.0 H (3.8-10.6) k/uL Neutrophils # 22.0 H (1.3-7.7) k/uL Lymphocytes # 0.6 L (1.0-4.8) k/uL PT 15.8 H (10.0-12.5) sec INR 1.5 H (<1.2) Sodium 135 L (137-145) mmol/L Chloride 93 L (98-107) mmol/L BUN 20 H (7-17) mg/dL Glucose 103 H (74-99) mg/dL Total Bilirubin 1.7 H (0.2-1.3) mg/dL ALT 70 H (4-34) U/L Alkaline Phosphatase 140 H (38-126) U/L Thrombosis Risk Factor Assmnt - Choose All That Apply Any of the Below Risk Factors Present?: No Other congenital or acquired thrombophilia - If yes, enter type in comment: No
[2024-07-29] MEDS: IPRATROPIUM-ALBUTEROL 3 ML NEB INHALATION PRN (04:36)
--- NOTE | 2024-07-29 07:27 | XR ---
EXAMINATION TYPE: XR chest 2V DATE OF EXAM: 07/29/2024 6:25 AM COMPARISON: Chest radiographs from 07/27/2024 TECHNIQUE: XR chest 2V Frontal and lateral views of the chest. CLINICAL INDICATION:Female, 34 years old with history of Follow-up pneumonia; FINDINGS: Lungs/Pleura: There is no evidence of pleural effusion, focal consolidation, or pneumothorax. Pulmonary vascularity: Unremarkable. Heart/mediastinum: Cardiomediastinal silhouette is unremarkable. Musculoskeletal: No acute osseous pathology. IMPRESSION: No acute cardiopulmonary disease/process. [facility], , 07/29/2024 7:24 AM
[2024-07-29 09:34] VITALS: BP 138/84; RESP 18; TEMP 98.1
[2024-07-29 10:36] LABS: Basophils # (A) 0.01 X 10*3/uL (0.00-0.10); Basophils % (A) 0.1 %; Eosinophils # (A) 0.01 X 10*3/uL (0.04-0.35); Eosinophils % (A) 0.1 %; HCT 34.6 % (37.2-46.3); HGB 11.6 g/dL (12.0-15.0); Lymphocytes # (A) 0.41 X 10*3/uL (0.90-5.00); Lymphocytes % (A) 4.8 %; MCH 28.8 pg (27.0-32.0); MCHC 33.5 g/dL (32.0-37.0); MCV 85.9 FL (80.0-97.0); Mean Platelet Volume 10.6 FL (9.5-12.2); Monocytes # (A) 0.22 X 10*3/uL (0.20-1.00); Monocytes % (A) 2.6 %; NRBC Per 100 WBC 0 X 10*3/uL (0.00-0.01); Neutrophils # (A) 7.92 X 10*3/uL (1.80-7.70); Neutrophils % (A) 91.8 %; Platelet Count 243 X 10*3/uL (140-440); RBC 4.03 X 10*6/uL (4.10-5.20); RDW 13.1 % (11.5-14.5); WBC 8.62 X 10*3/uL (4.50-10.00)
[2024-07-29 10:58] LABS: ALT 39 U/L (8-44); AST 20 U/L (13-35); Albumin 3.9 g/dL (3.8-4.9); Albumin/Globulin Ratio 1.44 Ratio (1.60-3.17); Alkaline Phosphatase 87 U/L (41-126); BUN/Creat Ratio 22.33 Ratio (12.00-20.00); Blood Urea Nitrogen 13.4 mg/dL (9.0-27.0); Calcium 8.8 mg/dL (8.7-10.3); Chloride 102 mmol/L (96-109); Globulin 2.7 g/dL (1.6-3.3); Glucose 159 mg/dL (70-110); Potassium 3.4 mmol/L (3.5-5.5); Sodium 138 mmol/L (135-145); Total Bilirubin 0.3 mg/dL (0.3-1.2); Total Protein 6.6 g/dL (6.2-8.2)
[2024-07-29 12:11] VITALS: PULSE 74
--- NOTE | 2024-07-29 14:21 | P.DS ---
Providers Date of admission: 07/27/24 17:05 Expected date of discharge: 07/29/24 Attending physician: Chanda Gomez Consults: 07/27/24 17:03 Consult Physician Routine Consulting Provider: Jensen Downey Consult Reason/Comments: pneumonia Do you want consulting provider notified?: Yes Primary care physician: Stated None Hospital Course: Hospital course: Patient is a 34-year-old female with past medical history of asthma presented to the emergency department with abdominal pain, nausea, vomiting, cough for the past month. Patient was diagnosed with flu a few weeks ago but stated that she never got better. For the first 2 weeks over the past month patient started having coughing, runny nose, sore throat. This eventually got better for few days. However, over the past week or so patient started feeling worse again with similar symptoms of runny nose, coughing, sore throat. She denies having any fever or chills. Also reports abdominal pain, nausea, vomiting. Denies chest pain, shortness of breath, or lower extremity swelling. In the ED patient was treated with 2 L of bolus normal saline, Protonix 40 mg IV x 1, Zofran 4 mg IV x 1, Toradol 50 mg IV x 1. Vitals on admission temperature 98, pulse rate 67, respiratory rate 16, blood pressure 109/76, O2 sat 95% on room air. EKG independently interpreted as sinus rhythm with frequent supraventricular premature complexes with ventricular rate of 99 bpm, QTc 409 ms. CXR shows no acute cardiopulmonary disease/process. Gallbladder ultrasound shows gallbladder sludge without evidence for acute cholecystitis. CT of abdomen pelvis shows bilateral lung infiltrates as described above. Findings most consistent with acute inflammatory process such as pneumonia and short-term follow-up to resolution is recommended. 3 mm nonobstructing left renal calcification. No acute changes within the abdomen or pelvis. Labs on admission show WBC 24, hemoglobin 14.7, hematocrit 43.6, platelets 251, PT 15.8, INR 1.5, PTT 27.3, sodium 135, potassium 3.5, chloride 93, BUN 20, creatinine 0.9, glucose 103, total bili 1.7, AST 35, ALT 70, alkaline phosphatase 140, hCG not detected. Patient was admitted to internal medicine service for community- acquired pneumonia and elevated white blood cell count and was started on IV antibiotics. Patient was seen on 07/29/2024 at bedside. She reports improving coughing and runny nose. Patient is saturating at 99% on room air. She is medically stable to be discharged back home. Recommend patient to follow-up with PCP in 1 to [address] Downey in 1 week after discharge. Patient will be sent home with Zofran 4 mg oral every 8 hours for 5 days, Medrol Dose pack, nebulized albuterol every 6 hours for 6 days, Augmentin [id number] oral twice daily for 4 days. Physical examination at discharge: Vital signs reviewed General: nontoxic, no distress, appears at stated age Derm: warm, dry, intact Head: atraumatic, normocephalic, symmetric Eyes: EOMI, anicteric sclera Mouth: no lip lesion, mucus membranes moist Cardiovascular: S1 S2 reg, no murmur Lungs: Clear to auscultation bilaterally Abdominal: soft, non-tender to palpation Extremities: No cyanosis, clubbing, or pedal edema. Neuro: Alert. Gross neurological examination did not reveal any focal deficits. Psych: well appearing, appropriate affect Attestation I have seen and examined this patient with my resident , discussed the same with the resident/ADRIANA, and agree with the dictator's assessment and plan as written GENERAL: The patient is alert and oriented x3, not in any acute distress. Well developed, well nourished. HEENT: Pupils are round and equally reacting to light. EOMI. No scleral icterus. No conjunctival pallor. Normocephalic, atraumatic. No pharyngeal erythema. No thyromegaly. CARDIOVASCULAR: S1 and S2 present. No murmurs, rubs, or gallops. PULMONARY: Chest is clear to auscultation, no wheezing or crackles. ABDOMEN: Soft, nontender, nondistended, normoactive bowel sounds. No palpable organomegaly. MUSCULOSKELETAL: No joint swelling or deformity. EXTREMITIES: No cyanosis, clubbing, or pedal edema. NEUROLOGICAL: Gross neurological examination did not reveal any focal deficits. SKIN: No rashes. Dr. Mango calderon Patient Condition at Discharge: Stable Plan - Discharge Summary Discharge Rx Participant: No New Discharge Prescriptions: New Ondansetron [Zofran] 4 mg PO Q8HR PRN 5 Days #15 tab PRN Reason: Nausea methylPREDNISolone Dose Pack [Medrol Dose Pack] 4 mg PO DIRECTED #21 tab Albuterol Nebulized [Ventolin Nebulized] 2.5 mg INHALATION Q6H 6 Days #75 ml Amoxic-Pot Clav 875-125Mg [Augmentin 875-125] 1 tab PO BID 4 Days #8 tab Continue Ibuprofen [Motrin] 600 mg PO Q8HR PRN #20 tab PRN Reason: Pain Discharge Medication List Ibuprofen [Motrin] 600 mg PO Q8HR PRN #20 tab 07/21/24 [Rx] Albuterol Nebulized [Ventolin Nebulized] 2.5 mg INHALATION Q6H 6 Days #75 ml 07/29/24 [Rx] Amoxic-Pot Clav 875-125Mg [Augmentin 875-125] 1 tab PO BID 4 Days #8 tab 07/29/24 [Rx] Ondansetron [Zofran] 4 mg PO Q8HR PRN 5 Days #15 tab 07/29/24 [Rx] methylPREDNISolone Dose Pack [Medrol Dose Pack] 4 mg PO DIRECTED #21 tab 07/29/24 [Rx] Follow up Appointment(s)/Referral(s): [facility] [NON-STAFF] - 1 Week [facility] [NON-STAFF] - 1 Week None,Stated [Primary Care Provider] - 1-2 days Jensen Downey MD [STAFF PHYSICIAN] - 08/13/24 1:30 pm Patient Instructions/Handouts: Community Acquired Pneumonia (DC) Discharge/Stand Alone Forms: [facility] PCPs Discharge Disposition: HOME SELF-CARE
--- NOTE | 2024-07-29 20:19 | P.PN ---
Subjective Progress Note Date: 07/29/24 Patient is a 34-year-old female, she reports history of asthma, states she has an as needed albuterol inhaler which she normally requires only once every 1 to 2 weeks. She does smoke marijuana and vapes daily. Of note, patient initially evaluated in the emergency department on July 21 for flu-like symptoms. Determined to have influenza A infection. Initial symptom onset was 2 weeks prior, and patient did not receive Tamiflu. Patient returns to the emergency department yesterday afternoon complaining of worsening shortness of breath, persistent cough, continued nausea and vomiting, and abdominal pain. Also, reports back "spasms" that she is feel exacerbated by coughing. Initial chest x-ray did not show any focal infiltrates or evidence of pneumonia. Subsequently, underwent CT of the abdomen pelvis with contrast demonstrating a consolidative opacity in the left lower lung along with small groundglass opacities in the right lower lobe and lingula. Also incidental finding of 3 mm nonobstructive left renal calculi. No acute intra-abdominal findings. CBC remarkable for leukocytosis with a WBC count of 24, hemoglobin 14.7, platelets 251. CMP: Sodium 135, potassium 3.5, chloride 93, serum bicarb 24, BUN 20, creatinine 0.9, glucose 103. Lactic is 1.5. LFTs mildly elevated. Total bilirubin 1.7. Lipase 45. [id number] test negative. Negative for influenza, RSV, COVID. Currently being evaluated the general medical floor. She is resting comfortably on room air. Does not appear in acute respiratory distress. Denies any fevers, chills, chest pain, purulent sputum production, hemoptysis. Cough is persistent and congested, but mostly nonproductive. Nontoxic appearance. Normal saline is infusing at 130 mL/h. She has been started on empiric antibiotics in the ED in the form of Zosyn. Has remained afebrile inpatient. Nausea and vomiting is subsided. Abdomen is soft and nontender. She is tolerating oral fluids and crackers. Current most recent vit al signs: Temperature 98.1 F, heart rate 70 bpm, blood pressure 104/71 mmHg, SpO2 recorded 96% on room air. 07/29/2024, no new complaints and the patient is feeling well. Oxygenation is stable and the patient is currently on room air oxygen. Blood work shows a drop in the white cell count down to 8.6 with a hemoglobin of 11.6, electrolytes are all within normal limits. Potassium level is at 3.4. Legionella urine antigen was negative. Sputum Gram stain and culture and blood culture negative thus far. The patient was treated with IV Zosyn and the patient is being considered to be discharged today on a course of Augmentin and a prednisone burst taper. Objective - Vital Signs Vital signs: Vital Signs Temp 98.1 F 07/29/24 07:34 Pulse 74 07/29/24 12:18 Resp 18 07/29/24 07:34 BP 138/84 07/29/24 07:34 Pulse Ox 99 07/29/24 07:34 FiO2 Intake & Output 07/28/24 07/29/24 07/29/24 18:59 06:59 18:59 Weight 79.379 kg Other: # Voids 3 2 # Bowel Movements 1 1 - Exam GENERAL EXAM: Alert, obese 34-year-old female, nontoxic appearance, comfortable in no apparent distress. HEAD: Normocephalic and atraumatic EYES: Normal reaction of pupils, equal size. NOSE: Clear with pink turbinates. THROAT: No erythema or exudates. NECK: No masses, no JVD. CHEST: No chest wall deformity. LUNGS: Equal air entry with no crackles, wheeze, rhonchi or dullness. On room air. No conversational dyspnea or accessory muscle use.. CVS: S1 and S2 normal with no audible murmur, regular rhythm. No extra heart sounds ABDOMEN: No hepatosplenomegaly, active bowel sounds, no guarding or rigidity. SPINE: No scoliosis or deformity SKIN: No rashes CENTRAL NERVOUS SYSTEM: No focal deficits, tone is normal in all 4 extremities. EXTREMITIES: There is no peripheral edema, clubbing, or cyanosis. Peripheral pulses are intact. - Labs CBC & Chem 7: 07/29/24 06:04 07/29/24 06:04 Labs: Abnormal Lab Results - Last 24 Hours (Table) 07/29/24 07/29/24 Range/Units 06:04 06:04 RBC 4.03 L (4.10-5.20) X 10*6/uL Hgb 11.6 L (12.0-15.0) g/dL Hct 34.6 L (37.2-46.3) % Immature Gran # 0.05 H (0.00-0.04) X 10*3/uL Neutrophils # 7.92 H (1.80-7.70) X 10*3/uL Lymphocytes # 0.41 L (0.90-5.00) X 10*3/uL Eosinophils # 0.01 L (0.04-0.35) X 10*3/uL Potassium 3.4 L (3.5-5.5) mmol/L Anion Gap 13.00 H (4.00-12.00) mmol/L BUN/Creatinine Ratio 22.33 H (12.00-20.00) Ratio Glucose 159 H (70-110) mg/dL Albumin/Globulin Ratio 1.44 L (1.60-3.17) Ratio Microbiology - Last 24 Hours (Table) 07/28/24 06:00 Gram Stain - Preliminary Sputum Sputum Culture - Preliminary 07/27/24 15:10 Blood Culture - Preliminary Blood Assessment and Plan Assessment: Community-acquired pneumonia, CT of the abdomen pelvis showing a consolidative opacity in left lower lung, as well as, small groundglass opacities in the right lower lobe and lingula. Clinically improved. No significant respiratory distress Acute leukocytosis, improved Recent history of influenza A infection, outside the window for Tamiflu Mild intermittent bronchial asthma, stable Nausea and vomiting, improved Nephrolithiasis, 3 mm nonobstructive left renal calculi incidentally noted on a bdominal/pelvis CT Nicotine dependence and vaping Chronic marijuana smoker Obesity, BMI 35.3 kg/m Plan: Oxygenation is stable Discharge the patient home on a course of Augmentin and Medrol Dosepak Clinically stable Outpatient follow-up
== END 2024-07-29 15:05 | disposition home or self-care (01) | DRG 139 ==
LOC: EC 12:18 → 4SSUR 17:05
PROVIDERS: ADMIT Hospitalist; ATTEND Hospitalist
DX: J10.00 Influenza due to other identified influenza virus with unspecified type of pneumonia (principal); Z11.52 Encounter for screening for COVID-19; E66.9 Obesity, unspecified; F17.290 Nicotine dependence, other tobacco product, uncomplicated; F32.A Depression, unspecified; F41.9 Anxiety disorder, unspecified; G89.29 Other chronic pain; M54.9 Dorsalgia, unspecified; I49.1 Atrial premature depolarization; J45.909 Unspecified asthma, uncomplicated; K82.8 Other specified diseases of gallbladder; N20.0 Calculus of kidney; Z68.35 Body mass index [BMI] 35.0-35.9, adult; Z98.51 Tubal ligation status; Z71.6 Tobacco abuse counseling
CPT/HCPCS: 36415; 71046; 74177; 76705; 80053; 82150; 83605; 83690; 84145; 84703; 85025; 85610; 85730; 87040; 87070; 87205; 87324; 87636; 87651; 93005; 94640; 96365; 96375; 96376; 99285